=== PATIENT | female | born 1980 | race Caucasian/White ===

== ENCOUNTER 2023-08-24 19:49 | Observation (INO) ==
--- NOTE | 2023-08-24 20:25 | ED.ABDFE ---
HPI Time Seen Time Seen by Provider: 08/24/23 20:22 PCP Primary Care Physician: arnie Complaint Chief Complaint:: abd pain all over and rt side of abd x 1 day COVID-19 Coronavirus risk:travel/contact w/high risk person: No Has patient experienced Coronavirus symptoms: No Source History Provided: Patient Mode of arrival Mode of Arrival: Ambulatory Timing Onset of Chief Complaint: 08/24/23 PMH PMH Past Medical History: Yes Past Medical History: Dyslipidemia and Hypertension Past Surgical History: Yes Surgical History: Past Surgical History Comment: carpal tunnel Family History History of Family Medical Conditions: No Social History Does patient currently use any type of tobacco product: No Have you used tobacco products in the last 12 months: No Type of Tobacco Use: None Does any household member use tobacco: No Alcohol Use: None Do you use any recreational Drugs:: No Lives With: Family Lives Where: Home Travel Risk Coronavirus risk:travel/contact w/high risk person: No Has patient experienced Coronavirus symptoms: No Infectious screening In the last 2 months have you had wt loss of >10#?: NO Have you had fever, night sweats or hemotysis?: No Have you traveled outside the country in the last 6 months?: No Isolation: Standard PE Vital Signs Vitals: Vital Signs Temperature 98.3 F Pulse Rate 76 Respiratory Rate 18 Blood Pressure 134/82 Blood Pressure 153/80 O2 Sat by Pulse Oximetry 97 ROR Labs Reviewed 08/24/23 20:17 08/24/23 20:17 Laboratory: WBC 12.2 X10^3/uL (3.6-10.0) H 08/24/23 20:17 RBC 4.41 X10^6/uL (3.5-5.4) 08/24/23 20:17 Hgb 12.3 g/dL (12.0-16.0) 08/24/23 20:17 Hct 37.4 % (36.0-47.0) 08/24/23 20:17 MCV 84.6 fL (80.0-100.0) 08/24/23 20:17 MCH 27.9 pg (27.0-34.0) 08/24/23 20:17 MCHC 33.0 g/dL (33.0-35.0) 08/24/23 20:17 RDW 13.4 % (11.6-16.5) 08/24/23 20:17 Plt Count 284 X10^3/uL (150.0-450.0) 08/24/23 20:17 MPV 7.4 fL (7.4-11.0) 08/24/23 20:17 Neut % (Auto) 73.0 % (42.0-75.0) 08/24/23 20:17 Lymph % (Auto) 16.9 % (21.0-51.0) L 08/24/23 20:17 [place] % (Auto) 6.6 % (0.0-13.0) 08/24/23 20:17 Eos % (Auto) 3.0 % (0.9-2.9) H 08/24/23 20:17 Baso % (Auto) 0.5 % (0.2-1.0) 08/24/23 20:17 Neut # (Auto) 8.9 x10^3/uL (2.2-4.8) H 08/24/23 20:17 Lymph # (Auto) 2.1 X10^3/uL (1.3-2.9) 08/24/23 20:17 [place] # (Auto) 0.8 x10^3/uL (0.3-0.8) 08/24/23 20:17 Eos # (Auto) 0.4 x10^3/uL (0.0-0.2) H 08/24/23 20:17 Baso # (Auto) 0.1 X10^3/uL (0.0-0.1) 08/24/23 20:17 Absolute Nucleated RBC 0.0 /100WBC 08/24/23 20:17 Sodium 138 mmol/L (136-145) 08/24/23 20:17 Corrected Sodium TNP 08/24/23 20:17 Potassium 3.6 mmol/L (3.5-5.1) 08/24/23 20:17 Chloride 100 mmol/L (98-107) 08/24/23 20:17 Carbon Dioxide 30.0 mmol/L (21-32) 08/24/23 20:17 BUN 11 mg/dL (7-18) 08/24/23 20:17 Creatinine 0.77 mg/dL (0.55-1.02) 08/24/23 20:17 Est GFR (MDRD) Af Amer > 60 (>60) 08/24/23 20:17 Est GFR (MDRD) Non-Af > 60 (>60) 08/24/23 20:17 Glucose 94 mg/dL (65-99) 08/24/23 20:17 Calcium 8.5 mg/dL (8.5-10.1) 08/24/23 20:17 Corrected Calcium TNP 08/24/23 20:17 Total Bilirubin 0.40 mg/dL (0.2-1.0) 08/24/23 20:17 AST 14 Units/L (15-37) L 08/24/23 20:17 ALT 25 Units/L (12-78) 08/24/23 20:17 Alkaline Phosphatase 63 Units/L (46-116) 08/24/23 20:17 Total Protein 7.5 g/dL (6.4-8.2) 08/24/23 20:17 Albumin 4.0 g/dL (3.4-5.0) 08/24/23 20:17 Globulin 3.5 g/dL (2.5-4.5) 08/24/23 20:17 Albumin/Globulin Ratio 1.1 Ratio (1.1-2.1) 08/24/23 20:17 Amylase 44 Units/L (25-115) 08/24/23 20:17 Lipase 24 Units/L (16-77) 08/24/23 20:17 Specimen Type Clean catch urine 08/24/23 20:10 Urine Color Pale yellow (YELLOW) 08/24/23 20:10 Urine Appearance Clear (CLEAR) 08/24/23 20:10 Urine pH 6.0 (5.0 - 8.0) 08/24/23 20:10 Ur Specific Mobile 1.015 (1.000-1.030) 08/24/23 20:10 Urine Protein 1+ (NEGATIVE) 08/24/23 20:10 Urine Glucose (UA) Negative (NEGATIVE) 08/24/23 20:10 Urine Ketones Negative (NEGATIVE) 08/24/23 20:10 Urine Blood Negative (NEGATIVE) 08/24/23 20:10 Urine Nitrite Negative (NEGATIVE) 08/24/23 20:10 Urine Bilirubin Negative (NEGATIVE) 08/24/23 20:10 Urine Urobilinogen Normal (NORMAL) 08/24/23 20:10 Ur Leukocyte Esterase Negative (NEGATIVE) 08/24/23 20:10 Urine RBC None seen /HPF (0-3) 08/24/23 20:10 Urine WBC None seen /HPF (0-5) 08/24/23 20:10 Ur Squamous Epith Cells Rare /HPF (NEGATIVE) 08/24/23 20:10 Urine Bacteria Negative /HPF (NEGATIVE) 08/24/23 20:10 Ur Culture Indicated? No/not indicated 08/24/23 20:10 Opioid Opioid Risk Tool Age (Ministerio box if 16-45): No History of Preadolescent Sexual Abuse: No Total: 0 Total Score Risk Category: Low Risk Copyright: Dangelo SLOAN predicting aberrant behaviors Discharge Plan Discharge Plan Patient Disposition: HOME, SELF-CARE Condition: Stable Prescriptions: No Action labetalol 100 mg tablet 100 mg PO BID rosuvastatin 5 mg tablet 5 mg PO QPM Mounjaro 10 mg/0.5 mL pen injector 10 mg SUBCUT QWEEK Health Concerns: Post Hospitalization: new medications and changes needed to prevent readmission or further decline. Pt educated and given instructions on all concerns. Plan of Treatment: Continue with present treatment and follow up plan. Pt is to keep follow up appointment as instructed and take medications as ordered. Orders to Discharge Patient Discharge Orders: Transfer (Routine); Ordered 08/24/23 Ordered By: KRISTINA RAMSEY Follow ups/Referrals Follow ups/Referrals: [facility],None [Primary Care Provider] - 3 days Instructions Stand Alone Forms: Post Hospital Follow Up Care
[2023-08-24 20:27] LABS: HEMATOCRIT 37.4 % (36.0-47.0); HEMOGLOBIN 12.3 g/dL (12.0-16.0); MEAN PLATELET VOLUME 7.4 fL (7.4-11.0); PLATELET COUNT 284 X10^3/uL (150.0-450.0)
[2023-08-24 20:30] LABS: BASOPHILS # (AUTO) 0.1 X10^3/uL (0.0-0.1); BASOPHILS % (AUTO) 0.5 % (0.2-1.0); EOSINOPHILS # (AUTO) 0.4 x10^3/uL (0.0-0.2); LYMPHOCYTES # (AUTO) 2.1 X10^3/uL (1.3-2.9); LYMPHOCYTES % (AUTO) 16.9 % (21.0-51.0); MEAN CORPUSCULAR HEMOGLOBIN 27.9 pg (27.0-34.0); MEAN CORPUSCULAR VOLUME 84.6 fL (80.0-100.0); MONOCYTES # (AUTO) 0.8 x10^3/uL (0.3-0.8); MONOCYTES % (AUTO) 6.6 % (0.0-13.0); NEUTROPHILS # (AUTO) 8.9 x10^3/uL (2.2-4.8); RED BLOOD COUNT 4.41 X10^6/uL (3.5-5.4); RED CELL DISTRIBUTION WIDTH 13.4 % (11.6-16.5); WHITE BLOOD COUNT 12.2 X10^3/uL (3.6-10.0)
[2023-08-24 20:35] LABS: APPEARANCE,URINE CLEAR (CLEAR); BILIRUBIN,URINE NEGATIVE (NEGATIVE); BLOOD/HEMOGLOBIN,URINE NEGATIVE (NEGATIVE); COLOR,URINE PALE YELLOW (YELLOW); GLUCOSE, URINE NEGATIVE (NEGATIVE); KETONES,URINE NEGATIVE (NEGATIVE); LEUKOCYTE ESTERASE ,URINE NEGATIVE (NEGATIVE); NITRITES,URINE NEGATIVE (NEGATIVE); PROTEIN,URINE 1+ (NEGATIVE); UROBILINOGEN,URINE NORMAL (NORMAL)
[2023-08-24 20:36] LABS: BACTERIA,URINE NEGATIVE /HPF (NEGATIVE); RBC,URINE NONE SEEN /HPF (0-3); SQUAMOUS EPITHELIAL CELL,UR RARE /HPF (NEGATIVE)
[2023-08-24 20:37] LABS: ALANINE AMINOTRANSFERASE 25 Units/L (12-78); ALKALINE PHOSPHATASE 63 Units/L (46-116); AMYLASE 44 Units/L (25-115); ASPARTATE AMINO TRANSFERASE 14 Units/L (15-37); BLOOD UREA NITROGEN 11 mg/dL (7-18); CALCIUM 8.5 mg/dL (8.5-10.1); CHLORIDE 100 mmol/L (98-107); CREATININE 0.77 mg/dL (0.55-1.02); GLUCOSE 94 mg/dL (65-99); LIPASE 24 Units/L (16-77); POTASSIUM 3.6 mmol/L (3.5-5.1); SODIUM 138 mmol/L (136-145); TOTAL PROTEIN 7.5 g/dL (6.4-8.2); eGFR NON BLACK RACES > 60 (>60)
--- NOTE | 2023-08-24 21:48 | CT ---
EXAM: CT ABDOMEN AND PELVIS WITHOUT INTRAVENOUS CONTRAST HISTORY: Right-sided abdominal pain x 1 day . TECHNIQUE: Spiral axial CT images are obtained through the abdomen and pelvis without the administrat ion of intravenous contrast. Additional coronal and sagittal reformatted images are reconstructed. DOSIMETRY: Total DLP 393.71 mGycm; CTDI 7.28 cm mGy COMPARISON: None available. FINDINGS: GASTROINTESTINAL TRACT: Evidence for acute retrocecal/enterocolonic/subhepatic appendicitis, marked b y a dilated (2 cm diameter), thickwalled, fluid-filled appendix with periappendiceal streaky inflamma tory change. Axial image 46-64. No drainable fluid collection, free air, or abscess formation seen. Diffuse colonic diverticulosis, especially in the descending colon and sigmoid regions, without CT evidence for acute diverticulitis. No evidence for bowel herniation, bowel obstruction, or colitis. GENITOURINARY SYSTEM: The kidneys are unremarkable. There is no ureteral calculus or stigmata of obst ructive uropathy. The urinary bladder is grossly unremarkable for a non-dedicated exam. REPRODUCTIVE SYSTEM: There is an approximately 2 cm ovarian cyst, presumed to represent a functional cyst in this age category. Consider correlation with a followup ultrasound for further characterizati on as clinically warranted. The uterus and adnexa appear grossly unremarkable for a CT scan. Consid er follow-up dedicated imaging as clinically warranted. BILIARY SYSTEM: There is extensive cholelithiasis, consistent with sequela of chronic cholecystitis. There is gallbladder dilatation and gallbladder wall thickening with pericholecystic stranding which may represent acute cholecystitis in the appropriate clinical setting. Consider follow-up evaluatio n with HIDA scan to rule out cystic duct obstruction and acute cholecystitis as clinically warranted. CT ABDOMEN: The liver, spleen, pancreas, adrenal glands, aorta, and inferior vena cava are within nor mal limits for a noncontrast CT scan. There is no intra-abdominal or retroperitoneal lymphadenopathy , free fluid, or free air seen. No abdominal herniation is noted. CT PELVIS: No pelvic sidewall or inguinal lymphadenopathy is seen. No inguinal herniation is noted . No free fluid or free air is seen. BONES AND JOINTS: The visualized bony structures are within normal limits. LUNG BASES: The lung bases are clear. IMPRESSION: 1. Acute retrocecal/enterocolonic/subhepatic appendicitis, marked by a dilated (2 cm diameter), thic kwalled, fluid-filled appendix with periappendiceal streaky inflammatory change. Axial image [id number]. 2. No drainable fluid collection, free air, or abscess formation seen. 3. Diffuse colonic diverticulosis, especially in the descending colon and sigmoid regions, without C T evidence for acute diverticulitis. 4. Approximately 2 cm ovarian cyst, presumed to represent a functional cyst in this age category. Co nsider correlation with a followup ultrasound for further characterization as clinically warranted. 5. Extensive cholelithiasis, consistent with sequela of chronic cholecystitis. 6. Gallbladder dilatation and gallbladder wall thickening with pericholecystic stranding which may r epresent acute cholecystitis in the appropriate clinical setting. Consider follow-up evaluation with HIDA scan to rule out cystic duct obstruction and acute cholecystitis as clinically warranted. 7. No evidence for renal stone disease or obstructive uropathy. THIS IS AN ELECTRONICALLY VERIFIED FINAL REPORT 08/24/2023 9:44 PM - Electronically signed by Johana Lema
[2023-08-24] MEDS: ZOSYN VIAL 3.375 GRAMS 3.375 G in NS 100 ML IV 100 ML IV ONE (22:14)
[2023-08-24] MEDS: NS 1,000 ML IV 1,000 ML IV SCH (22:14)
[2023-08-24] MEDS: ZOFRAN INJ 4 MG VIAL IVP ONE (22:14)
[2023-08-24] MEDS: DILAUDID INJ IVP ONE (22:16)
[2023-08-24] MEDS ORDERED: ZOFRAN INJ 4 MG VIAL IVP PRN (23:21)
[2023-08-24 23:42] VITALS: BMI 33.5
[2023-08-25] MEDS: DILAUDID INJ IVP PRN (03:29)
[2023-08-25] MEDS: ZOSYN VIAL 3.375 GRAMS 3.375 G in NS 100 ML IV 100 ML IV SCH (05:49)
[2023-08-25] MEDS: ZOSYN VIAL 3.375 GRAMS IV ONE (06:03)
[2023-08-25] MEDS: ZOFRAN INJ 4 MG VIAL ONE ×2 (06:03→10:02)
[2023-08-25] MEDS: NS 1,000 ML IV 1,000 ML ONE (06:04)
[2023-08-25 06:37] LABS: BASOPHILS % (AUTO) 0.5 % (0.2-1.0); EOSINOPHILS # (AUTO) 0.2 x10^3/uL (0.0-0.2); EOSINOPHILS % (AUTO) 2.9 % (0.9-2.9); HEMATOCRIT 34.7 % (36.0-47.0); HEMOGLOBIN 11.5 g/dL (12.0-16.0); LYMPHOCYTES # (AUTO) 1.5 X10^3/uL (1.3-2.9); LYMPHOCYTES % (AUTO) 17.6 % (21.0-51.0); MEAN CORPUSCULAR HEMOGLOBIN 28.1 pg (27.0-34.0); MEAN CORPUSCULAR VOLUME 85.1 fL (80.0-100.0); MEAN PLATELET VOLUME 7.8 fL (7.4-11.0); MONOCYTES # (AUTO) 0.8 x10^3/uL (0.3-0.8); MONOCYTES % (AUTO) 8.7 % (0.0-13.0); NEUTROPHILS # (AUTO) 6.1 x10^3/uL (2.2-4.8); NEUTROPHILS % (AUTO) 70.3 % (42.0-75.0); PLATELET COUNT 245 X10^3/uL (150.0-450.0); RED BLOOD COUNT 4.08 X10^6/uL (3.5-5.4); RED CELL DISTRIBUTION WIDTH 13.6 % (11.6-16.5); WHITE BLOOD COUNT 8.7 X10^3/uL (3.6-10.0)
[2023-08-25 06:45] LABS: ALANINE AMINOTRANSFERASE 21 Units/L (12-78); ALBUMIN 3.2 g/dL (3.4-5.0); ALKALINE PHOSPHATASE 55 Units/L (46-116); AMYLASE 31 Units/L (25-115); ASPARTATE AMINO TRANSFERASE 15 Units/L (15-37); BLOOD UREA NITROGEN 10 mg/dL (7-18); CALCIUM 8.2 mg/dL (8.5-10.1); CHLORIDE 105 mmol/L (98-107); COR CA(FOR HYPOALB) 8.8 mg/dL (8.5-10.1); CREATININE 0.75 mg/dL (0.55-1.02); GLUCOSE 86 mg/dL (65-99); LIPASE 15 Units/L (16-77); POTASSIUM 4.1 mmol/L (3.5-5.1); SODIUM 138 mmol/L (136-145); TOTAL PROTEIN 6.6 g/dL (6.4-8.2); eGFR NON BLACK RACES > 60 (>60)
[2023-08-25] MEDS: NORMODYNE TAB 100 MG PO SCH (08:45)
[2023-08-25] MEDS: LR 1,000 ML IV 1,000 ML IV ONE (09:00)
[2023-08-25] MEDS ORDERED: PERIDEX or PERIOGARD MT SCH (09:00)
[2023-08-25 09:11] LABS: SERUM PREGNANCY TEST, QUAL NEGATIVE <10 mIU/mL
[2023-08-25] MEDS: HIBICLENS WASH EXT NR (09:16)
[2023-08-25] MEDS: FENTANYL VIAL INJ 250 mcg ONE (10:02)
[2023-08-25] MEDS: VERSED ONE (10:02)
[2023-08-25] MEDS: DIPRIVAN VIAL 20 ML ONE (10:02)
[2023-08-25] MEDS: PEPCID 20 MG VIAL ONE (10:02)
[2023-08-25] MEDS ORDERED: SUPRANE ONE (10:02)
[2023-08-25] MEDS: ZEMURON 100 MG VIAL ONE (10:02)
[2023-08-25] MEDS: XYLOCAINE 2 % (PLAIN) ONE (10:02)
[2023-08-25] MEDS: BACTROBAN TOPICAL OINT ONE (10:27)
[2023-08-25] MEDS: BRIDION ONE (11:03)
[2023-08-25] MEDS: TORADOL 30 MG VIAL ONE (11:03)
[2023-08-25] MEDS ORDERED: BENADRYL INJ 50 MG VIAL IVP PRN (11:14)
[2023-08-25] MEDS ORDERED: REGLAN INJ 10 MG VIAL IVP PRN (11:14)
[2023-08-25] MEDS ORDERED: BARHEMSYS INJ IVP PRN (11:14)
[2023-08-25] MEDS ORDERED: DILAUDID INJ IVP PRN (11:14)
[2023-08-25] MEDS ORDERED: ZOFRAN INJ 4 MG VIAL IVP PRN (11:14)
[2023-08-25] MEDS: NS 250 ML IV 25 ML IV PRN (21:12)
[2023-08-26 05:30] LABS: BASOPHILS % (AUTO) 0.5 % (0.2-1.0); EOSINOPHILS # (AUTO) 0.2 x10^3/uL (0.0-0.2); EOSINOPHILS % (AUTO) 2.3 % (0.9-2.9); HEMATOCRIT 29.6 % (36.0-47.0); LYMPHOCYTES # (AUTO) 0.9 X10^3/uL (1.3-2.9); LYMPHOCYTES % (AUTO) 13.1 % (21.0-51.0); MEAN CORPUSCULAR HEMOGLOBIN 28.6 pg (27.0-34.0); MEAN CORPUSCULAR HGB CONC 33.8 g/dL (33.0-35.0); MEAN CORPUSCULAR VOLUME 84.5 fL (80.0-100.0); MEAN PLATELET VOLUME 7.5 fL (7.4-11.0); MONOCYTES # (AUTO) 0.5 x10^3/uL (0.3-0.8); MONOCYTES % (AUTO) 7.7 % (0.0-13.0); NEUTROPHILS # (AUTO) 5.2 x10^3/uL (2.2-4.8); NEUTROPHILS % (AUTO) 76.4 % (42.0-75.0); PLATELET COUNT 175 X10^3/uL (150.0-450.0); RED BLOOD COUNT 3.51 X10^6/uL (3.5-5.4); RED CELL DISTRIBUTION WIDTH 13.8 % (11.6-16.5); WHITE BLOOD COUNT 6.8 X10^3/uL (3.6-10.0)
[2023-08-26 05:44] LABS: ALANINE AMINOTRANSFERASE 47 Units/L (12-78); ALBUMIN 2.7 g/dL (3.4-5.0); ALKALINE PHOSPHATASE 69 Units/L (46-116); ASPARTATE AMINO TRANSFERASE 28 Units/L (15-37); BLOOD UREA NITROGEN 8 mg/dL (7-18); CALCIUM 7.8 mg/dL (8.5-10.1); CARBON DIOXIDE 23.7 mmol/L (21-32); CHLORIDE 104 mmol/L (98-107); COR CA(FOR HYPOALB) 8.8 mg/dL (8.5-10.1); CREATININE 0.86 mg/dL (0.55-1.02); GLUCOSE 82 mg/dL (65-99); POTASSIUM 3.5 mmol/L (3.5-5.1); SODIUM 137 mmol/L (136-145); eGFR NON BLACK RACES > 60 (>60)
[2023-08-26] MEDS ORDERED: CONSULT PHARMACY - POTASSIUM & MAGNESIUM XX SCH (07:00)
[2023-08-26 08:24] VITALS: BP 132/72; PULSE 83; RESP 18; TEMP 99.2; O2SAT 97
[2023-08-26] MEDS: K-DUR TAB 20 MEQ PO SCH (08:34)
[2023-08-26] MEDS: MAG-OX TAB PO SCH (08:34)
== END 2023-08-26 10:40 | disposition home or self-care (01) ==
LOC: ER 19:49 → MED/SURG 19:49
PROVIDERS: ADMIT Surgery; ATTEND Surgery
PROC: APPYLAP (ICD-10-PCS; 2023-08-25 10:30)
DX: R10.84 Generalized abdominal pain; E83.42 Hypomagnesemia; K35.890 Other acute appendicitis without perforation or gangrene; K80.00 Calculus of gallbladder with acute cholecystitis without obstruction; E78.5 Hyperlipidemia, unspecified; I10 Essential (primary) hypertension; K57.30 Diverticulosis of large intestine without perforation or abscess without bleeding; N83.299 Other ovarian cyst, unspecified side; K66.0 Peritoneal adhesions (postprocedural) (postinfection)